=== PATIENT | female | born 1965 | race Caucasian/White ===

== ENCOUNTER → 2017-09-01 | Outpatient (REF) | payer OTHER | LOC: M SFHCWAGY 12:00 | PROVIDERS: ATTEND Nurse Practitioner Women's Health | DX: Z12.4 Encounter for screening for malignant neoplasm of cervix (principal) ==

== ENCOUNTER → 2017-09-06 | Outpatient (CLI) | payer OTHER ==
--- NOTE | 2017-09-06 17:12 | REPMRS ---
Patient History The patient states she had a clinical breast exam in 08/2017. No known family history of cancer. Retro-pectoral saline implants in both breasts, 2001. Digital Woman Screen Mammo: September 06, 2017 - Exam #: [id number] Bilateral CC and MLO view(s) were taken. Technologist: Delfina Gannon, Technologist Prior study comparison: June 19, 2014, digital mammo diagnostic bilateral, performed at [facility]. March 07, 2012, digital woman screen mammo performed at [facility]. FINDINGS: There are scattered fibroglandular densities. The visualized implant margins are smooth. Breast parenchymal density pattern is essentially symmetric. No dominant mass, clustered microcalcification, or archetectural distortion is evident on either side. There are a few scattered, small, benign calcifications of doubtful clinical significance. No significant changes when compared with prior studies. ASSESSMENT: BI-RADS/ACR category 2 mammogram. Benign finding(s). Recommendation Routine screening mammogram in 1 year (for women over age 40). This mammogram was interpreted with the aid of an FDA-approved computer-aided dectection system. A. Negative x-ray reports should not delay biopsy if a dominant or clinically suspicious mass is present. B. Four to eight percent of cancers are not identified by mammography. C. Adenosis and dense breast may obscure an underlying neoplasm. Electronically Signed By: Cresencio Johnston MD 09/06/17 [id number]
== END ==
LOC: M WHC 16:08
PROVIDERS: ATTEND Nurse Practitioner Women's Health
DX: Z12.31 Encounter for screening mammogram for malignant neoplasm of breast (principal)

== ENCOUNTER → 2018-10-27 | Outpatient (CLI) | payer OTHER ==
--- NOTE | 2018-10-27 14:39 | REPMRS ---
Patient History The patient states she had a clinical breast exam in 10/2018. No known family history of cancer. Retro-pectoral saline implants in both breasts, 2001. Digital Woman Screen Mammo: October 27, 2018 - Exam #: [id number] Bilateral CC and MLO view(s) were taken. Technologist: Katelyn Cartwright Technologist Prior study comparison: September 06, 2017, digital woman screen mammo performed at [facility]. March 07, 2012, digital woman screen mammo performed at [facility]. April 08, 2009, bilateral bilat screen digital mammo performed at [facility]. FINDINGS: There are scattered fibroglandular densities. The visualized implant margins are smooth. Breast parenchymal density pattern is essentially symmetric. No dominant mass, clustered microcalcification, or architectural distortion is evident on either side. 3-D tomosynthesis shows no additional findings. No significant changes when compared with prior studies. Assessment: BI-RADS/ACR category 2 mammogram. Benign Findings. Recommendation Routine screening mammogram of both breasts in 1 year (for women over age 40). This patient's Lifetime Breast Cancer RIsk is estimated at 10.5 %. This mammogram was interpreted with the aid of an FDA-approved computer-aided dectection system. Electronically Signed By: Darryl Sheikh MD 10/27/18 [id number]
== END ==
LOC: M WHC 09:12
PROVIDERS: ATTEND Nurse Practitioner Women's Health
DX: Z12.31 Encounter for screening mammogram for malignant neoplasm of breast (principal); Z98.82 Breast implant status

== ENCOUNTER 2019-11-24 07:00 | Emergency (ER) | payer OTHER ==
[~2019-11-24] VITALS: Ht 162.6 cm; Wt 61.4 kg
[2019-11-24 08:13] LABS: BASO % 0.7 % (0.0-1.0); EOS # 0.1 10^3/uL (0.0-0.5); HEMATOCRIT 37.6 % (36.0-47.0); HEMOGLOBIN 12.6 g/dl (12.0-15.5); LYMPH # 2.7 10^3/uL (1.5-5.0); LYMPH % 44.2 % (24.0-44.0); MEAN CORPUSCULAR HEMOGLOBIN 30.8 pg (27.0-33.0); MEAN CORPUSCULAR HGB CONC 33.5 g/dl (32.0-36.5); MEAN CORPUSCULAR VOLUME 91.9 fl (80.0-96.0); MONO # 0.5 10^3/uL (0.0-0.8); MONO % 7.9 % (0.0-5.0); NEUTROPHILS # 2.7 10^3/uL (1.5-8.5); NEUTROPHILS % 44.5 % (36.0-66.0); PLATELET COUNT, AUTOMATED 253 10^3/uL (150-450); RED BLOOD COUNT 4.09 10^6/uL (4.00-5.40); WHITE BLOOD COUNT 6.1 10^3/uL (4.0-10.0)
--- NOTE | 2019-11-24 08:32 | REPVR ---
PROCEDURE INFORMATION: Exam: CT Lumbar Spine Without Contrast Exam date and time: 11/24/2019 8:13 AM Age: 54 years old Clinical indication: Low back pain; Additional info: Pain low back, shooting down right leg, tingling TECHNIQUE: Imaging protocol: Computed tomography images of the lumbar spine without contrast. Radiation optimization: All CT scans at this facility use at least one of these dose optimization techniques: automated exposure control; mA and/or kV adjustment per patient size (includes targeted exams where dose is matched to clinical indication); or iterative reconstruction. COMPARISON: MRI-Spine, L.S. without con 06/29/2014 5:38 PM FINDINGS: Vertebrae: The lumbar vertebral bodies are normal in height and alignment.No acute fracture or dislocation is seen. L1-L2: No disc herniation. No spinal canal stenosis. No neural foraminal narrowing. L2-L3: No disc herniation. No spinal canal stenosis. No neural foraminal narrowing. L3-L4: Small left foraminal protrusion. Mild facet arthropathy. Moderate left foraminal stenosis. L4-L5: Small diffuse posterior herniation.The facet joints demonstrate mild degenerative hypertrophy and sclerosis.There is thickening of the ligamentum flavum.There is mild spinal canal narrowing, with an AP canal dimension of 10 mm. There is mild right foraminal stenosis.There is moderate left foraminal stenosis. L5-S1: Moderate posterior central herniation.The facet joints demonstrate mild degenerative hypertrophy and sclerosis.There is moderate spinal canal stenosis, with an AP canal dimension of 8 mm.There is compression of the thecal sac.There is mild bilateral foraminal stenosis. Epidural space: There is no evidence of epidural masses or hemorrhage. Soft tissues: There are no soft tissue masses or fluid collections. The prevertebral soft tissues appear normal. IMPRESSION: Degenerative spondylitic changes as described above. No acute fracture or dislocation is seen. Electronically signed by: Portillo Moore On 11/24/2019 08:31:43 AM
[2019-11-24 08:48] LABS: ERYTHROCYTE SEDIMENTATION RATE 5 mm/hr (0-30)
[2019-11-24] MEDS ORDERED: LORazepam 1 MG TAB PO STA (08:51)
[2019-11-24] MEDS ORDERED: diazePAM 5 MG TAB PO ONE (09:00)
--- NOTE | 2019-11-24 13:02 | REPVR ---
PROCEDURE INFORMATION: Exam: MR Thoracic Spine Without Contrast Exam date and time: 11/24/2019 12:34 PM Age: 54 years old Clinical indication: Numbness; Additional info: Loss of rectal control, numbness, tingling R side TECHNIQUE: Imaging protocol: Multiplanar magnetic resonance images of the thoracic spine without intravenous contrast. COMPARISON: No relevant prior studies available. FINDINGS: Vertebrae: The thoracic vertebral bodies are normal height and alignment.No acute fracture or dislocation is seen. There is no significant degenerative disc herniation or spondylosis. The spinal canal and neural foramina are patent.. Spinal cord: The thoracic spinal cord is normal in thickness and signal intensity.There is no cord compression or intramedullary signal abnormality. T1-T2: No significant disc disease. No significant spinal canal stenosis. T2-T3: No significant disc disease. No significant spinal canal stenosis. T3-T4: No significant disc disease. No significant spinal canal stenosis. T4-T5: No significant disc disease. No significant spinal canal stenosis. T5-T6: No significant disc disease. No significant spinal canal stenosis. T6-T7: No significant disc disease. No significant spinal canal stenosis. T7-T8: No significant disc disease. No significant spinal canal stenosis. T8-T9: No significant disc disease. No significant spinal canal stenosis. T9-T10: No significant disc disease. No significant spinal canal stenosis. T10-T11: No significant disc disease. No significant spinal canal stenosis. T11-T12: No significant disc disease. No significant spinal canal stenosis. Brain: There is no evidence of epidural masses or hemorrhage. Other bones/joints: There is a normal proportion of hematopoietic bone marrow and fat for this patient's age.There is no evidence of abnormal bone marrow signal intensity to suggest contusion or infection. Soft tissues: The prevertebral soft tissues appear normal. IMPRESSION: Unremarkable MRI of the thoracic spine.There is no significant degenerative disc herniation or spondylosis. The spinal canal and neural foramina are patent.There is no cord compression or intramedullary signal abnormality. Electronically signed by: Portillo Moore On 11/24/2019 13:01:11 PM
--- NOTE | 2019-11-24 13:18 | REPVR ---
PROCEDURE INFORMATION: Exam: MR Lumbar Spine Without Contrast. Exam date and time: 11/24/2019 8:51 AM Age: 54 years old Clinical indication: Numbness; Additional info: Loss of rectal control, numbness, tingling R side TECHNIQUE: Imaging protocol: Multiplanar magnetic resonance images of the lumbar spine without intravenous contrast. COMPARISON: MRI-Spine, L.S. without con 06/29/2014 5:[address] Spine, lumbar w/o contrast 11/24/2019 8:11:08 AM FINDINGS: Vertebrae: The lumbar vertebral bodies are normal in height , signal intensity and alignment.No acute fracture or dislocation is seen. Marrow: There is a normal proportion of hematopoietic bone marrow and fat for this patient's age.There is no evidence of abnormal bone marrow signal intensity to suggest contusion or infection. Spinal epidural space: There is no evidence of epidural masses or hemorrhage. Spinal cord: The conus medullaris is normal. L1-L2: There is no significant degenerative disc herniation.The spinal canal and neural foramina are patent and without significant stenosis. L2-L3: There is no significant degenerative disc herniation.The spinal canal and neural foramina are patent and without significant stenosis. L3-L4: Small left foraminal protrusion. Mild left foraminal stenosis. L4-L5: There is a mild diffuse posterior bulge causing mild effacement of the thecal sac.The facet joints demonstrate moderate degenerative narrowing and sclerosis. There is thickening of the ligamentum flavum.There is mild spinal canal narrowing, with an AP canal dimension of 10 mm. There is mild right foraminal stenosis. There is moderate left foraminal stenosis. L5-S1: Moderately reduced in height and T2 signal indicating degeneration. Moderate posterior central herniation. 13 x 11 x 10 mm extruded disc fragment in the right paracentral region extending superiorly posterior to the L5 vertebral body.The facet joints demonstrate moderate degenerative narrowing and sclerosis. There is thickening of the ligamentum flavum.There is moderate spinal canal stenosis, with an AP canal dimension of 8 mm. Severe right lateral recess narrowing with compression of the right L5, S1 and S2 nerve roots. Soft tissues: The prevertebral soft tissues appear normal. IMPRESSION: MRI of the lumbar spine reveals multilevel degenerative spondylitic changes and degenerative disc disease, most significant at L5-S1 level as described above. Electronically signed by: Portillo Moore On 11/24/2019 13:17:51 PM
[2019-11-24] MEDS ORDERED: CYCL10TA PO (13:46)
[2019-11-24] MEDS ORDERED: PRED20TA PO (13:46)
[2019-11-24 13:48] VITALS: BP 132/69
[2019-11-24] MEDS ORDERED: LIDO5DIS41 TOP (13:51)
--- NOTE | 2019-11-26 09:47 | ED PDOC ---
Post-Departure Follow-Up [facility] faxed formal report to jaden camejo for fu Pablo Suggs MD Nov 26, 2019 09:47
--- NOTE | 2019-11-26 10:35 | ED PDOC ---
Post-Departure Follow-Up [facility] faxed formal report of ct [facility] spine for fu Pablo Escobar lg, MD Nov 26, 2019 10:35
== END 2019-11-24 14:03 | disposition home or self-care (01) ==
LOC: M ED 07:00
DX: M51.16 Intervertebral disc disorders with radiculopathy, lumbar region (principal); M51.17 Intervertebral disc disorders with radiculopathy, lumbosacral region; M51.26 Other intervertebral disc displacement, lumbar region; M48.061 Spinal stenosis, lumbar region without neurogenic claudication; E78.5 Hyperlipidemia, unspecified; Z79.899 Other long term (current) drug therapy

== ENCOUNTER → 2022-03-18 | Outpatient (REF) ==
[~2022-03-18] MED LIST: CYCL-707 PO; LIDO5DIS41 TOP; PRED20TA PO
== END ==
LOC: M EMP 07:53
PROVIDERS: ATTEND Family Medicine
DX: Z11.52 Encounter for screening for COVID-19 (principal)

== ENCOUNTER → 2022-05-11 | Outpatient (CLI) | payer OTHER ==
[2022-05-11 06:55] LABS: BASO % 0.9 % (0.0-1.0); EOS # 0.1 10^3/uL (0.0-0.5); EOS % 2.5 % (0.0-3.0); HEMATOCRIT 42.1 % (36.0-47.0); HEMOGLOBIN 14.1 g/dl (12.0-15.5); LYMPH # 1.7 10^3/uL (1.5-5.0); LYMPH % 39.1 % (24.0-44.0); MEAN CORPUSCULAR HEMOGLOBIN 30.9 pg (27.0-33.0); MEAN CORPUSCULAR HGB CONC 33.5 g/dl (32.0-36.5); MEAN CORPUSCULAR VOLUME 92.1 fl (80.0-96.0); MONO # 0.4 10^3/uL (0.0-0.8); MONO % 8.6 % (2.0-8.0); NEUTROPHILS # 2.1 10^3/uL (1.5-8.5); NEUTROPHILS % 48.7 % (36.0-66.0); PLATELET COUNT, AUTOMATED 258 10^3/uL (150-450); RED BLOOD COUNT 4.57 10^6/uL (4.00-5.40); WHITE BLOOD COUNT 4.3 10^3/uL (4.0-10.0)
[2022-05-11 07:37] LABS: FREE T3 2.7 PG/ML (2.2-4.0); FREE T4 0.8 NG/DL (0.76-1.46); THYROID STIMULATING HORMONE 2.58 uIU/ML (0.358-3.740)
[2022-05-11 11:19] LABS: PROGESTERONE 5.57 NG/ML
[2022-05-11 11:20] LABS: LUTEINIZING HORMONE 20.7 mIU/mL
[2022-05-11 11:21] LABS: ESTRADIOL 74.3 PG/ML; FOLLICLE STIMULATING HORMONE 62.6 mIU/mL
[2022-05-12 23:07] LABS: TESTOSTERONE FREE (DIRECT) 2.4 pg/mL (0.0-4.2)
== END ==
LOC: M LAB 06:26
DX: R89.1 Abnormal level of hormones in specimens from other organs, systems and tissues (principal); N95.1 Menopausal and female climacteric states; E34.9 Endocrine disorder, unspecified; E07.89 Other specified disorders of thyroid

== ENCOUNTER → 2022-06-29 | Outpatient (CLI) | payer OTHER ==
[2022-06-29 06:53] LABS: BASO # 0.1 10^3/uL (0.0-0.2); BASO % 0.9 % (0.0-1.0); EOS # 0.2 10^3/uL (0.0-0.5); HEMOGLOBIN 14.6 g/dl (12.0-15.5); LYMPH # 1.4 10^3/uL (1.5-5.0); LYMPH % 26.9 % (24.0-44.0); MEAN CORPUSCULAR HEMOGLOBIN 30.9 pg (27.0-33.0); MEAN CORPUSCULAR VOLUME 90.9 fl (80.0-96.0); MONO # 0.6 10^3/uL (0.0-0.8); MONO % 10.6 % (2.0-8.0); NEUTROPHILS # 3.1 10^3/uL (1.5-8.5); PLATELET COUNT, AUTOMATED 292 10^3/uL (150-450); RED BLOOD COUNT 4.73 10^6/uL (4.00-5.40); WHITE BLOOD COUNT 5.4 10^3/uL (4.0-10.0)
[2022-06-29 10:34] LABS: ESTRADIOL 212.4 PG/ML; PROGESTERONE 8.57 NG/ML
[2022-06-30 12:08] LABS: TESTOSTERONE FREE (DIRECT) 4.3 pg/mL (0.0-4.2)
== END ==
LOC: M LAB 06:18
PROVIDERS: ATTEND Physician Assistant Medical
DX: E34.9 Endocrine disorder, unspecified (principal); E07.89 Other specified disorders of thyroid; N95.1 Menopausal and female climacteric states; R89.1 Abnormal level of hormones in specimens from other organs, systems and tissues

== ENCOUNTER → 2023-07-22 | Outpatient (REF) | payer OTHER | LOC: M SFHCWAGY 12:33 | PROVIDERS: ATTEND Nurse Practitioner Family | DX: Z12.4 Encounter for screening for malignant neoplasm of cervix (principal) ==